=== PATIENT | male | born 1995 | race Caucasian/White ===

== ENCOUNTER → 2023-07-25 | Outpatient (CLI) | payer OTHER ==
[2023-07-25 15:18] LABS: ALBUMIN 4.2 G/DL (3.2-5.2); ALKALINE PHOSPHATASE 80 U/L (46-116); ALT/SGPT 28 U/L (7.0-40); AST/SGOT 23 U/L (<34); BILIRUBIN,TOTAL 0.5 MG/DL (0.3-1.2); BLOOD UREA NITROGEN 22 MG/DL (9-23); CALCIUM LEVEL 8.9 MG/DL (8.5-10.1); CARBON DIOXIDE LEVEL 30 MMOL/L (20-31); CHLORIDE LEVEL 104 MMOL/L (98-107); GLOMERULAR FILTRATION RATE > 60.0 (>60); GLUCOSE, FASTING 80 MG/DL (60-100); POTASSIUM SERUM 4.1 MMOL/L (3.5-5.1); SODIUM LEVEL 139 MMOL/L (136-145)
[2023-07-25 15:32] LABS: GC DNA AMPLIFICATION NEGATIVE (NEGATIVE)
[2023-07-25 17:16] LABS: HEPATITIS C VIRUS ABY INDEX 0.04 INDEX (<0.8)
[2023-07-26 18:09] LABS: %CD4 Pos Lymphs 24.8 % (30.8-58.5); ABS Eosinophils 0.1 x10E3/uL (0.0-0.4); ABS Lymphs 1.6 x10E3/uL (0.7-3.1); ABS Monocytes 0.5 x10E3/uL (0.1-0.9); ABS Neutophils 2.7 x10E3/uL (1.4-7.0); Abs CD4 Helper 397 /uL (359-1519); Abs CD8 Suppres 480 /uL (109-897); CD4/CD8 Ratio 0.83 (0.92-3.72); Eosinophils 3 % (Not Estab.); HCT 45.9 % (37.5-51.0); HEPATITIS B CORE ANTIBODY IGG Positive (Negative); HGB 15.8 g/dL (13.0-17.7); HIV-1 RNA PCR QUANT 2 LC550285 <20 copies/mL (.); Immature Grans 0 % (Not Estab.); Lymphocytes 32 % (Not Estab.); MCH 30.5 pg (26.6-33.0); MCHC 34.4 g/dL (31.5-35.7); MCV 89 fL (79-97); Monocytes 10 % (Not Estab.); Neutrophils 55 % (Not Estab.); Platelets 197 x10E3/uL (150-450); RBC 5.18 x10E6/uL (4.14-5.80); RDW 12.9 % (11.6-15.4); RPR Non Reactive (Non Reactive)
== END ==
LOC: M PLALAB 11:13
PROVIDERS: ATTEND Internal Medicine Infectious Disease
DX: B20 Human immunodeficiency virus [HIV] disease (principal); Z86.19 Personal history of other infectious and parasitic diseases

== ENCOUNTER → 2024-03-10 | Outpatient (CLI) | payer OTHER ==
[2024-03-10 16:11] LABS: ALBUMIN 4.1 G/DL (3.2-5.2); ALKALINE PHOSPHATASE 72 U/L (40-129); ALT/SGPT 28 U/L (7.0-40); AST/SGOT 13 U/L (<34); BILIRUBIN,TOTAL 0.3 MG/DL (0.3-1.2); BLOOD UREA NITROGEN 22 MG/DL (9-23); CALCIUM LEVEL 9.9 MG/DL (8.5-10.1); CARBON DIOXIDE LEVEL 30 MMOL/L (20-31); CHLORIDE LEVEL 106 MMOL/L (98-107); CREATININE FOR GFR 1.06 MG/DL (0.70-1.30); GLOMERULAR FILTRATION RATE > 60.0 (>60); GLUCOSE, FASTING 85 MG/DL (60-100); SODIUM LEVEL 140 MMOL/L (136-145); TOTAL PROTEIN 7.2 G/DL (5.7-8.2)
[2024-03-11 13:10] LABS: % CD4+ LYMPHS 24.7 % (30.8-58.5); ABSOLUTE CD4 HELPER 420 /uL (359-1519); BASOPHILS 0 % (Not Estab.); EOSINOPHILS 2 % (Not Estab.); EOSINOPHILS ABSOLUTE 0.1 x10E3/uL (0.0-0.4); HCT 45.6 % (37.5-51.0); HGB 15.6 g/dL (13.0-17.7); LYMPHOCYTES 32 % (Not Estab.); LYMPHOCYTES ABSOLUTE 1.7 x10E3/uL (0.7-3.1); MCH 30.5 pg (26.6-33.0); MCHC 34.2 g/dL (31.5-35.7); MCV 89 fL (79-97); MONOCYTES 8 % (Not Estab.); MONOCYTES ABSOLUTE 0.4 x10E3/uL (0.1-0.9); NEUTROPHILS 58 % (Not Estab.); NEUTROPHILS ABSOLUTE 3.1 x10E3/uL (1.4-7.0); PLT 208 x10E3/uL (150-450); RBC 5.12 x10E6/uL (4.14-5.80); RDW 12.7 % (11.6-15.4); WBC 5.3 x10E3/uL (3.4-10.8)
== END ==
LOC: M PLALAB 13:43
PROVIDERS: ATTEND Internal Medicine Infectious Disease
DX: B20 Human immunodeficiency virus [HIV] disease (principal)

== ENCOUNTER → 2025-04-20 | Outpatient (CLI) | payer OTHER ==
[2025-04-20 12:23] LABS: ALT/SGPT 30.0 U/L (7.0-40); AST/SGOT 23.0 U/L (<34); CALCIUM LEVEL 8.6 MG/DL (8.5-10.1); CARBON DIOXIDE LEVEL 30.0 MMOL/L (20-31); CHLORIDE LEVEL 106.0 MMOL/L (98-107); CHOLESTEROL LEVEL 165.0 MG/DL (<200); CHOLESTEROL RISK RATIO 3.12 (<5); CREATININE FOR GFR 1.26 MG/DL (0.70-1.30); GLOMERULAR FILTRATION RATE 78.2 (>60); LDL CHOLESTEROL 94.8 MG/DL (<100); NON-HDL-C 112.2 MG/DL; POTASSIUM SERUM 4.6 MMOL/L (3.5-5.1); SODIUM LEVEL 142.0 MMOL/L (136-145); TRIGLYCERIDES LEVEL 87.0 MG/DL (<150)
[2025-04-20 13:06] LABS: GC DNA AMPLIFICATION NEGATIVE (NEGATIVE)
[2025-04-20 13:08] LABS: GC DNA AMPLIFICATION NEGATIVE (NEGATIVE)
[2025-04-21 12:27] LABS: RPR NON-REACTIVE (NON-REACTIVE)
[2025-04-23 02:42] LABS: % CD4 27 % (30-61); %CD8 35 % (12-42); ABSOLUTE CD4 CELLS 267 cells/uL (490-1740); ABSOLUTE CD8 CELLS 341 cells/uL (180-1170); ABSOLUTE LYMPHOCYTES 982 cells/uL (850-3900); CD4 CD8 RATIO 0.78 (0.86-5.00)
[2025-04-23 12:17] LABS: HIV-1 RNA PCR QUANT 2 NOT DETECTED copies/mL (NOT DETECTED); HIV-1 RNA PCR QUANT 3 NOT DETECTED (NOT DETECTED)
== END ==
LOC: M PLALAB 08:30
PROVIDERS: ATTEND Internal Medicine Infectious Disease
DX: B20 Human immunodeficiency virus [HIV] disease (principal); Z11.3 Encounter for screening for infections with a predominantly sexual mode of transmission; Z13.220 Encounter for screening for lipoid disorders; Z86.19 Personal history of other infectious and parasitic diseases